=== PATIENT | male | born 1950 | race Caucasian/White ===

== ENCOUNTER 2016-05-20 20:20 | Inpatient (IN) | payer MEDICARE, MEDICAID ==
[~2016-05-20 20:20] MED LIST: ALBUTEROL I0.5 ML/EA AERO NEB; ASPIRIN325 MG PO; ASPIRIN81 MG PO; ATIVAN0.5 MG PO; ATROVENT1 PUFF INH; AYR SALINE NA14.1 GM TP; CALCIUM 600 +1 EAC2 PO; CEFTIN500 MG PO; DECADRON4 MG PO; FLOMAX0.4 MG PO; FLONASE16 GM NS; FLUNISOLIDE25 ML NS; FOSAMAX35 MG PO; IBUPROFEN800 MG PO; LAMICTAL XR300 MG PO; LAMICTAL150 MG PO; LIPITOR20 MG PO; LISINOPRIL10 MG PO; LOPRESSOR50 MG PO; MILK OF MA400 MG/5 M PO; NAPROSYN500 MG PO; NORCO 5/325 TAB1 TAB PO; NORCO 5/3251 TA2 PO; PETROLATUM TP; POTASSIUM CHLO20 MEQ PO; PRILOSEC20 MG PO; PRINIVIL5 M1 PO; PROSCAR5 MG PO; SALINE NASAL SP30 ML NS; THERA M1 TAB PO; THEREMS-M1 TA PO; TOPAMAX200 MG PO; TYLENOL325 M1 PO; TYLENOL325 MG PO; VITAMIN D400 UNIT PO; ZOCOR40 MG PO; ZOLOFT100 MG PO; ZYPREXA10 MG PO; ZYPREXA5 MG PO
[2016-05-20] MEDS ORDERED: TYLENOL325 M2 PO (20:48)
[2016-05-20] MEDS ORDERED: TINACTIN150 GM AP (20:49)
[2016-05-20] MEDS ORDERED: FLOMAX0.4 M1 PO (20:49)
[2016-05-21 05:53] LABS: PROTHROMBIN TIME 11.8 SECONDS (9.0-13.6)
[2016-05-21 06:08] LABS: ALKALINE PHOSPHATASE 79 U/L (33-138); ALT/SGPT 16 U/L (12-78); ANION GAP 13 mmol/L (0-20); AST/SGOT 13 U/L (10-40); BILIRUBIN,TOTAL 0.3 mg/dl (0.0-1.5); BLOOD UREA NITROGEN 12 mg/dl (6-24); CALCIUM 8.5 mg/dl (8.5-10.5); CARBON DIOXIDE-VENOUS 21 mmol/L (22-32); CHLORIDE 114 mmol/l (96-110); CHOLESTEROL 104 mg/dl (120-200); CREATININE 0.63 mg/dl (0.60-1.30); GLUCOSE 85 mg/dL (70-110); HDL CHOLESTEROL 37 mg/dl (40-60); LDL CHOLESTEROL 45 mg/dl (0-99); MAGNESIUM 2.1 mg/dl (1.3-2.6); POTASSIUM 3.5 mmol/L (3.7-5.1); SODIUM 144 mmol/L (135-145); TRIGLYCERIDES 110 mg/dl (<149); VLDL 22 mg/dl (0-30); eGFR VALUE FOR BLACK >60 mL/Min
[2016-05-21 06:12] LABS: TSH-THYROID STIMULATING HORM. 2.07 uIU/ml (0.40-3.80)
[2016-05-21 06:25] LABS: BASO % 0.3 % (0-2); EOS % 5.3 % (0-7); EOSINOPHIL ABSOLUTE COUNT 0.3 tho/cmm (0.0-0.7); HCT-HEMATOCRIT 38.7 % (36.0-53.5); HGB-HEMOGLOBIN 12.7 gm/dl (13.5-17.0); IMMATURE GRANULOCYTES ABSOLUTE 0.05 tho/cmm (0-0.03); IMMATURE GRANULOCYTES PERCENT 0.8 % (0-0.3); LYMPH % 23.7 % (20-45); LYMPH ABSOLUTE COUNT 1.5 tho/cmm (0.8-4.5); MCH (MEAN CORPUSCULAR HGB) 33.5 pg (28.0-32.0); MCHC MEAN CORPUSCULAR HGB CONC 32.8 % (32.0-36.0); MCV (MEAN CELL VOLUME) 102.1 fl (82.0-96.0); MEAN PLATELET VOLUME 10.8 cmc (9.4-12.4); MONO % 13.2 % (0-12); MONOCYTE ABSOLUTE COUNT 0.8 tho/cmm (0.0-1.2); NEUTROPHIL ABSOLUTE COUNT 3.5 tho/cmm (1.6-8.0); NEUTROPHIL-AUTOMATED 3.5 tho/cmm (1.6-8.0); NEUTROPHILS % 56.7 % (40-80); PLATELET COUNT 197 tho/cmm (150-450); RED BLOOD COUNT 3.79 mil/cmm (4.40-5.70); WHITE BLOOD COUNT 6.2 tho/cmm (4.0-10.0)
[2016-05-23 05:50] LABS: BASO % 0.2 % (0-2); EOS % 1.5 % (0-7); EOSINOPHIL ABSOLUTE COUNT 0.2 tho/cmm (0.0-0.7); HGB-HEMOGLOBIN 14.2 gm/dl (13.5-17.0); IMMATURE GRANULOCYTES ABSOLUTE 0.05 tho/cmm (0-0.03); IMMATURE GRANULOCYTES PERCENT 0.4 % (0-0.3); LYMPH ABSOLUTE COUNT 1.2 tho/cmm (0.8-4.5); MCH (MEAN CORPUSCULAR HGB) 33.6 pg (28.0-32.0); MCHC MEAN CORPUSCULAR HGB CONC 33.8 % (32.0-36.0); MCV (MEAN CELL VOLUME) 99.5 fl (82.0-96.0); MEAN PLATELET VOLUME 10.7 cmc (9.4-12.4); MONO % 12.6 % (0-12); MONOCYTE ABSOLUTE COUNT 1.5 tho/cmm (0.0-1.2); NEUTROPHIL ABSOLUTE COUNT 9.2 tho/cmm (1.6-8.0); NEUTROPHIL-AUTOMATED 9.2 tho/cmm (1.6-8.0); NEUTROPHILS % 75.3 % (40-80); PLATELET COUNT 199 tho/cmm (150-450); RED BLOOD COUNT 4.22 mil/cmm (4.40-5.70); RED CELL DISTRIBUTION WIDTH 12.7 % (12.4-16.4)
[2016-05-23 06:02] LABS: WHITE BLOOD COUNT 12.2 tho/cmm (4.0-10.0)
[2016-05-23 06:11] LABS: ALB/GLOB RATIO 1.1 (0.8-2.0); ALBUMIN 3.2 g/dl (3.5-5.0); ALKALINE PHOSPHATASE 85 U/L (33-138); ALT/SGPT 15 U/L (12-78); ANION GAP 12 mmol/L (0-20); AST/SGOT 11 U/L (10-40); BILIRUBIN,TOTAL 0.3 mg/dl (0.0-1.5); BLOOD UREA NITROGEN 7 mg/dl (6-24); CALCIUM 8.3 mg/dl (8.5-10.5); CARBON DIOXIDE-VENOUS 22 mmol/L (22-32); CHLORIDE 112 mmol/l (96-110); CREATININE 0.71 mg/dl (0.60-1.30); GLUCOSE 90 mg/dL (70-110); POTASSIUM 3.2 mmol/L (3.7-5.1); SODIUM 143 mmol/L (135-145); eGFR VALUE FOR BLACK >60 mL/Min
[2016-05-24 05:44] LABS: HGB-HEMOGLOBIN 13.7 gm/dl (13.5-17.0); PLATELET COUNT 225 tho/cmm (150-450)
[2016-05-24 05:54] LABS: ANION GAP 12 mmol/L (0-20); BLOOD UREA NITROGEN 8 mg/dl (6-24); CALCIUM 8.5 mg/dl (8.5-10.5); CARBON DIOXIDE-VENOUS 18 mmol/L (22-32); CHLORIDE 112 mmol/l (96-110); CREATININE 0.73 mg/dl (0.60-1.30); GLUCOSE 99 mg/dL (70-110); SODIUM 138 mmol/L (135-145); eGFR VALUE FOR BLACK >60 mL/Min
[2016-05-24 05:59] LABS: POTASSIUM 4.3 mmol/L (3.7-5.1)
== END 2016-05-24 16:00 | DRG 71 ==
LOC: CCU 20:20 → 5EB 05-22 20:00
PROVIDERS: Internal Medicine; ADMIT Family Medicine
PROC: 5A09357 Assistance with Respiratory Ventilation, Less than 24 Consecutive Hours, Continuous Positive Airway Pressure (ICD-10-PCS; principal; 2016-05-21)
DX: G93.40 Encephalopathy, unspecified (principal); I69.359 Hemiplegia and hemiparesis following cerebral infarction affecting unspecified side; E78.5 Hyperlipidemia, unspecified; F31.9 Bipolar disorder, unspecified; G40.909 Epilepsy, unspecified, not intractable, without status epilepticus; G47.33 Obstructive sleep apnea (adult) (pediatric); I10 Essential (primary) hypertension; I95.1 Orthostatic hypotension; K21.9 Gastro-esophageal reflux disease without esophagitis; R00.1 Bradycardia, unspecified; Z23 Encounter for immunization
CPT/HCPCS: A9577; G0009; J1650; J7030